=== PATIENT | female | born 1950 | race Caucasian/White ===

== ENCOUNTER 2019-07-30 03:53 | Emergency (ER) | payer MEDICARE, SELFPAY ==
--- NOTE | ~2019-07-30 | CT_ITS ---
EXAMINATION: CT abdomen pelvis w con DATE: 07/30/2019 05:22 INDICATION: Left abdominal pain TECHNIQUE: Computed tomography (CT) of the abdomen and pelvis was performed with 100 cc Omnipaque 350 intravenous contrast. The dose-length product was 940.61 mGy-cm. Automated exposure control and iter ative reconstruction technique were employed. COMPARISON: None. FINDINGS: Heart size is normal. No significant pleural or pericardial effusion. Lung bases within nor mal limits. Fatty infiltration of the liver. There are calcified granulomas in the spleen. The pancre as, adrenal glands are within normal limits. Normal appendix. Nonobstructive bowel gas pattern. Colon ic diverticulosis without evidence for diverticulitis. There are bilateral parapelvic cysts of the ki dneys. No definite renal/ureteral stone or hydronephrosis. Status post hysterectomy. Small cyst in th e left lower quadrant, likely of no clinical significance. Moderate lumbar spondylosis. IMPRESSION: 1. No acute abdominal abnormality. No findings to account for patient's symptoms. Reviewed, dictated and finalized at [facility]. IMPRESSION: 1. No acute abdominal abnormality. No findings to account for patient's symptom s.
[2019-07-30 03:57] VITALS: BP 159/80; PULSE 66; RESP 16; TEMP 36.1; O2SAT 100
[2019-07-30 04:17] LABS: Basophils Percent Auto 0.3 % (0.2-1.2); Eosinophils Absolute Auto 0.3 K/mm3 (0-0.3); Eosinophils Percent Auto 4.9 % (0-4.4); Hematocrit 43.4 % (37.0-47.0); Hemoglobin 14.3 g/dL (12.0-15.0); Immature Granulocyte Absolute 0.03 K/mm3 (0.00-0.031); Immature Granulocyte Percent A 0.4 % (0-0.5); Lymphocytes Absolute Auto 2.69 K/mm3 (0.9-3.2); Lymphocytes Percent Auto 39.9 % (18.3-44.2); Mean Corpuscular HGB Conc 32.9 g/dl (32-36); Mean Corpuscular Hemoglobin 33.6 pg (26-34); Mean Corpuscular Volume 101.9 fl (80-100); Mean Platelet Volume 9.4 fl (7.4-10.4); Monocytes Absolute Auto 0.6 K/mm3 (0.1-0.6); Monocytes Percent Auto 8.8 % (2.6-8.5); Neutrophils Absolute Auto 3.1 K/mm3 (1.3-6.7); Neutrophils Percent Auto 45.7 % (45.5-73.1); Platelet Count Result 290 k/mm3 (150-375); Red Blood Count 4.26 M/mm3 (4.2-5.4); Red Cell Distribution Width 12.7 % (11.5-14.5); White Blood Count 6.7 K/mm3 (4.5-10.0)
--- NOTE | 2019-07-30 04:17 | ED.ABDPAIN ---
HPI - Abdominal Pain General Chief Complaint: Abdominal Pain Stated Complaint: flank pain Time Seen by Provider: 07/30/19 03:55 Source: RN notes reviewed History of Present Illness HPI narrative: Patient presents emergency department from home for abdominal pain. Patient states that symptoms began yesterday. Patient states pain was initially in the left flank and has now moved into the left upper abdomen pain is described as sharp and stabbing in nature does not radiate. Patient states pain was constant all day yesterday then went away for a while and then returned this evening and woke her from sleep. States is associated with diarrhea denies any fevers chills chest pain shortness of breath nausea vomiting or any other symptoms. Patient states she took Tylenol approximately 1 hour ago Related Data Allergies Allergy/AdvReac Type Severity Reaction Status Date / Time No Known Allergies Allergy Verified 07/30/19 04:00 Review of Systems Review of Systems: Narrative: Gen.: Denies fevers or chills ENT: Denies congestion Respiratory: Denies shortness of breath or cough CV: Denies chest pain or palpitations GI: See HPI denies burning, urgency, frequency or hematuria Musculoskeletal: Denies back pain or muscle pain Neuro: Denies numbness, tingling, weakness or focal weakness Skin: Denies rash Except as documented, all other systems reviewed and negative PMFSH Past Medical History Medical History (Updated 07/30/19 @ 06:47 by Aman Palacios DO) Hypertension Hypothyroidism Social History Social History (Updated 07/30/19 @ 04:18 by Aman Palacios DO) Smoking status: Never smoker Exam Narrative: Exam Narrative: APPEARANCE: No acute distress, nontoxic, resting in bed HEENT: Normocephalic, atraumatic, OMM RESPIRATORY: No respiratory distress, clear to auscultation bilaterally with no rhonchi wheezing or rales CARDIOVASCULAR: RRR s murmur ABDOMINAL: Soft, nondistended, tender palpation left upper quadrant, no tenderness right upper quadrant, right lower quadrant left lower quadrant, rebound or guarding no overlying rash seen on the abdomen or flank MUSCULOSKELETAl: Moves all extremities. No clubbing, cyanosis or edema. NEURO: Awake and alert. Following commands, speech normal, no focal deficits SKIN:: Warm, dry. Normal Color PSYCHIATRIC: Normal affect/mood Course Course Emergency Course: Patient states pain is resolved following GI cocktail Patient states that they are feeling much better at this time. States abdominal pain has resolved. Repeat abdominal exam shows the patient's abdomen to be soft and nontender. Discussed with patient results of workup and diagnosis. Discussed need for follow-up with primary care physician, reasons to return to the emergency department in proper use of medication. Patient understands and agrees to current treatment plan I discussed with patient need for follow-up with GI and possible EGD states that she was scheduled for a colonoscopy with a GI physician at [facility] but is been canceled secondary to COVID discussed need follow-up with a GI doctor Vital Signs Vital signs: Vital Signs Temperature 97.0 F L 07/30/19 03:57 Pulse Rate 66 07/30/19 03:57 Respiratory Rate 16 07/30/19 03:57 Blood Pressure 159/80 H 07/30/19 03:57 Pulse Oximetry 100 07/30/19 03:57 Temperature 97.0 F L 07/30/19 03:57 Pulse Rate 60 07/30/19 06:27 Respiratory Rate 20 07/30/19 06:27 Blood Pressure 149/84 H 07/30/19 06:27 Pulse Oximetry 100 07/30/19 06:27 MDM - Abdominal Pain MDM Narrative Medical decision making narrative: Patient states that they are feeling much better at this time. States abdominal pain has resolved. Repeat abdominal exam shows the patient's abdomen to be soft and nontender. Discussed with patient results of workup and diagnosis. Discussed need for follow-up with primary care physician, reasons to return to the emergency department in proper use of medication. Sheila
[2019-07-30 04:28] LABS: Add Urine Microscopic? NO; Appearance Urine Clear (Clear); Bilirubin Urine Negative (Negative); Blood Urine Negative (Negative); Color Urine Straw (Yellow); Glucose Urine UA Negative (Negative); Ketones Urine Negative (Negative); Leukocyte Esterase Ur Negative LEU/UL (Negative); Nitrate Urine Negative (Negative); Protein Urine Negative (Negative); Specific Grav Ur 1.017 (1.001-1.035); Urobilinogen Urine Negative mg/dL (<2.0)
[2019-07-30 04:29] LABS: Alanine Aminotransferase 21 U/L (4-35); Albumin Level 4.2 g/dL (3.5-5.1); Alkaline Phosphatase 95 U/L (38-126); Aspartate Amino Transferase 26 U/L (14-36); Bilirubin,Total 0.4 mg/dL (0.2-1.3); Blood Urea Nitrogen 16 mg/dL (7-17); Calcium 9.4 mg/dL (8.4-10.2); Carbon Dioxide 28 mmol/L (22-30); Chloride 101 mmol/L (98-107); Estimated Glomerular Filt Rate > 60; Glucose 100 mg/dL (65-105); Lipase 101 U/L (23-300); Sodium 135 mmol/L (137-145)
--- NOTE | 2019-07-30 06:26 | ECG_ITS ---
Measurements Intervals [place] Rate: 60 P: 36 GA: 172 QRS: 32 QRSD: 94 T: 11 QT: 437 QTc: 438 Interpretive Statements SINUS RHYTHM LOW QRS VOLTAGE IN PRECORDIAL LEADS BORDERLINE R WAVE PROGRESSION, ANTERIOR LEADS BORDERLINE T WAVE ABNORMALITY- ANTERIOR LEADS BASELINE WANDER- I, II, AVR, AVL, AVF BORDERLINE ECG Electronically Signed On 07-30-2019 7:33:34 CDT by Eulalio Slaughter D.O.
[2019-07-30 06:27] VITALS: BP 149/84; PULSE 60; RESP 20; O2SAT 100
[2019-07-30] MEDS: PANTOPRAZOLE SODIUM IV 40 MG VIAL IV PUSH (06:54)
[2019-07-30 06:58] VITALS: BP 150/82; PULSE 60; RESP 20; O2SAT 100
== END 2019-07-30 07:01 | disposition home or self-care (01) ==
PROVIDERS: Emergency Provider Emergency Medicine; PCP Internal Medicine
DX: R10.12 Left upper quadrant pain (principal); I10 Essential (primary) hypertension; E03.9 Hypothyroidism, unspecified; R94.31 Abnormal electrocardiogram [ECG] [EKG]
CPT/HCPCS: 36415; 74177; 80053; 81003; 83690; 85025; 93005; 96374; 99284; A9270; C9113; Q9967

== ENCOUNTER 2019-07-31 08:18 | Emergency (ER) | payer MEDICARE, SELFPAY ==
--- NOTE | ~2019-07-31 | CT_ITS ---
EXAMINATION: CTA abdomen pelvis DATE: 07/31/2019 12:08 INDICATION: Left lower quadrant abdominal pain TECHNIQUE: Computed tomography (CT) of the abdomen was performed with 100 cc Omnipaque 350 intravenou s contrast. Automated exposure control and iterative reconstruction technique were employed. Three-di mensional reconstructions of the abdominal aorta and iliac arteries Exam dose: 1129.19 mGy-cm total exam DLP. COMPARISON: 07/30/2019 CT abdomen pelvis FINDINGS: Cardiomegaly. No pericardial or pleural effusion. Lung bases are clear. There is some patchy hepatic steatosis. No hepatic, splenic, pancreatic, adrenal or solid renal space -occupying mass lesion is evident. The gallbladder is present. No bile duct or pancreatic duct dilata tion. Bilateral renal cysts including multiple parapelvic left renal cysts. A pinpoint nonobstructing left renal calculus is noted. No ureteral calculus or hydroureteronephrosis. The urinary bladder is unrema rkable. There is normal caliber of the abdominal aorta. There is a focal area of prominent calcified plaque i n the proximal abdominal aorta anteriorly immediately cephalad to the celiac trunk. No abdominal aort ic dissection or aneurysm is evident. No intraperitoneal or retroperitoneal or pelvic mass lesion or adenopathy or ascites. Normal appendix. There is diverticulosis of the colon. No CT evidence of diverticulitis. No bowel obs truction, bowel wall thickening, pneumatosis or intraperitoneal free air. Status post hysterectomy. Small fat-containing umbilical hernia. Degenerative changes of the lower thoracic and lumbar spine including severe degenerative disease at L4-5. IMPRESSION: Bilateral renal cysts Pinpoint nonobstructing left renal calculus Hepatic steatosis Cardiomegaly Reviewed, dictated and finalized at [facility]. Reviewed, dictated and finalized at [facility].
[2019-07-31 08:24] VITALS: BP 160/83; PULSE 100; RESP 18; TEMP 36.7; O2SAT 98
[2019-07-31 09:50] LABS: Basophils Percent Auto 0.3 % (0.2-1.2); Eosinophils Absolute Auto 0.2 K/mm3 (0-0.3); Eosinophils Percent Auto 3.4 % (0-4.4); Hematocrit 44.8 % (37.0-47.0); Hemoglobin 14.7 g/dL (12.0-15.0); Immature Granulocyte Absolute 0.04 K/mm3 (0.00-0.031); Immature Granulocyte Percent A 0.6 % (0-0.5); Lymphocytes Absolute Auto 2.45 K/mm3 (0.9-3.2); Lymphocytes Percent Auto 37.4 % (18.3-44.2); Mean Corpuscular HGB Conc 32.8 g/dl (32-36); Mean Corpuscular Hemoglobin 33.6 pg (26-34); Mean Corpuscular Volume 102.5 fl (80-100); Mean Platelet Volume 10.3 fl (7.4-10.4); Monocytes Absolute Auto 0.5 K/mm3 (0.1-0.6); Monocytes Percent Auto 6.9 % (2.6-8.5); Neutrophils Absolute Auto 3.4 K/mm3 (1.3-6.7); Neutrophils Percent Auto 51.4 % (45.5-73.1); Platelet Count Result 278 k/mm3 (150-375); Red Blood Count 4.37 M/mm3 (4.2-5.4); Red Cell Distribution Width 12.8 % (11.5-14.5); White Blood Count 6.6 K/mm3 (4.5-10.0)
[2019-07-31 09:52] LABS: Add Urine Microscopic? NO; Appearance Urine Clear (Clear); Bilirubin Urine Negative (Negative); Blood Urine Negative (Negative); Color Urine Yellow (Yellow); Glucose Urine UA Negative (Negative); Ketones Urine Negative (Negative); Leukocyte Esterase Ur Negative LEU/UL (Negative); Nitrate Urine Negative (Negative); Protein Urine Negative (Negative); Specific Grav Ur 1.029 (1.001-1.035); Urobilinogen Urine Negative mg/dL (<2.0)
[2019-07-31 10:01] LABS: Alanine Aminotransferase 20 U/L (4-35); Albumin Level 4.5 g/dL (3.5-5.1); Alkaline Phosphatase 89 U/L (38-126); Aspartate Amino Transferase 28 U/L (14-36); Bilirubin,Total 0.5 mg/dL (0.2-1.3); Blood Urea Nitrogen 18 mg/dL (7-17); Calcium 9.8 mg/dL (8.4-10.2); Carbon Dioxide 27 mmol/L (22-30); Chloride 102 mmol/L (98-107); Estimated CRCL calculation 71 ml/min; Estimated Glomerular Filt Rate > 60; Glucose 100 mg/dL (65-105); Lipase 91 U/L (23-300); Potassium 4.2 mmol/L (3.4-5.0); Sodium 136 mmol/L (137-145)
--- NOTE | 2019-07-31 11:43 | ED.GENADULT ---
HPI - General Adult General Chief complaint: Abdominal Pain Stated complaint: ABD PAIN History of Present Illness HPI narrative: Patient is a 68-year-old female who presents ER with left-sided abdominal pain. Symptoms began 2 days ago. She was seen yesterday for similar symptoms. She had unremarkable blood work and a unremarkable CAT scan. She reports the pain started in her left flank and is now moving down into her left mid abdomen. No urinary symptoms. No diarrhea. She was started on Protonix. Symptoms are not improving. Pain is colicky and nonradiating at this time. Patient denies any muscular injury to abdomen or recent physical activity/straining. Related Data Allergies Allergy/AdvReac Type Severity Reaction Status Date / Time No Known Allergies Allergy Verified 07/31/19 08:32 Review of Systems Review of Systems: All systems reviewed & are unremarkable except as noted in HPI and below Constitutional: Constitutional: Denies chills, Denies fever(s) and Denies weakness ENT: Denies nasal congestion and Denies sore throat Respiratory: Respiratory: Denies cough and Denies dyspnea Gastrointestinal: Gastrointestinal: Reports abdominal pain, Denies constipation, Denies diarrhea, Denies nausea and Denies vomiting PMFSH Past Medical History Medical History (Updated 07/31/19 @ 13:07 by Jair Jackson MD) Hypertension Hypothyroidism Surgical History Surgical History (Updated 07/31/19 @ 11:44 by Jair Jackson MD) H/O total hysterectomy Social History Social History (Updated 07/30/19 @ 04:18 by Aman Palacios DO) Smoking status: Never smoker Gender identity (if verbalized by the patient): Female Exam Narrative: Exam Narrative: GENERAL: Well-appearing, well-nourished, and in no acute distress. HEAD: Normocephalic, atraumatic. ENT: Mucous membranes moist. CHEST: Clear to auscultation. No respiratory distress. HEART: Regular rate and rhythm. Normal peripheral pulses. ABDOMEN: Soft, mild left lower quadrant tenderness without guarding or rebound, nondistended, normal active bowel sounds. EXTREMITIES: Normal range of motion. No edema. SKIN: Warm, dry, no rash. NEURO: Alert and oriented x3. Course Course Emergency Course: Benign exam. Unremarkable lab work and imaging studies. Recommend NSAIDs and Tylenol for home. Patient may have an abdominal wall strain or spasm. Vital Signs Vital signs: Vital Signs Temperature 98.1 F 07/31/19 08:24 Pulse Rate 100 07/31/19 08:24 Respiratory Rate 18 07/31/19 08:24 Blood Pressure 160/83 H 07/31/19 08:24 Pulse Oximetry 98 07/31/19 08:24 Temperature 98.1 F 07/31/19 08:24 Pulse Rate 69 07/31/19 11:46 Respiratory Rate 16 07/31/19 11:46 Blood Pressure 177/93 H 07/31/19 11:46 Pulse Oximetry 97 07/31/19 11:46 Medical Decision Making Vital Signs Vital Signs: Vital Signs Temperature 98.1 F 07/31/19 08:24 Pulse Rate 100 07/31/19 08:24 Respiratory Rate 18 07/31/19 08:24 Blood Pressure 160/83 H 07/31/19 08:24 Pulse Oximetry 98 07/31/19 08:24 Temperature 98.1 F 07/31/19 08:24 Pulse Rate 69 07/31/19 11:46 Respiratory Rate 16 07/31/19 11:46 Blood Pressure 177/93 H 07/31/19 11:46 Pulse Oximetry 97 07/31/19 11:46 Lab Data Result diagrams: 07/31/19 09:43 07/31/19 09:43 Labs: Lab Results 07/31/19 07/31/19 07/31/19 Range/Units 09:43 09:43 09:45 WBC 6.6 (4.5-10.0) K/mm3 RBC 4.37 (4.2-5.4) M/mm3 Hgb 14.7 (12.0-15.0) g/dL Hct 44.8 (37.0-47.0) % MCV 102.5 H (80-100) fl MCH 33.6 (26-34) pg MCHC 32.8 (32-36) g/dl RDW 12.8 (11.5-14.5) % Plt Count 278 (150-375) k/mm3 MPV 10.3 (7.4-10.4) fl Immature Gran % (Auto) 0.6 H (0-0.5) % Neut % (Auto) 51.4 (45.5-73.1) % Lymph % (Auto) 37.4 (18.3-44.2) % [place] % (Auto) 6.9 (2.6-8.5) % Eos % (Auto) 3.4 (0-4.4) % Baso % (Auto) 0.3 (0.2-
[2019-07-31 11:46] VITALS: BP 177/93; PULSE 69; RESP 16; O2SAT 97
[2019-07-31 13:09] VITALS: BP 154/69; PULSE 59; RESP 16; O2SAT 99
== END 2019-07-31 13:18 | disposition home or self-care (01) ==
PROVIDERS: Emergency Provider Emergency Medicine; PCP Internal Medicine
DX: R10.9 Unspecified abdominal pain (principal); I10 Essential (primary) hypertension; E03.9 Hypothyroidism, unspecified
CPT/HCPCS: 36415; 74174; 80053; 81003; 83690; 85025; 99284; Q9967